=== PATIENT | female | born 2000 | race Caucasian/White ===

== ENCOUNTER 2020-11-26 14:42 | Emergency (ER) | payer BC ==
[~2020-11-26] VITALS: Ht 167 cm; Wt 77.0 kg
--- NOTE | 2020-11-26 15:20 | ED EENT ---
History of Present Illness General Chief Complaint: Oral/Throat Problems Stated Complaint: SORE THROAT, DEHYDRATION Nursing Triage Note: PT CO OF SORETHROAT STATES SENT FROM CLINIC, STATES STARTED YESTERDAY, HAS BODY ACHES AND FEVER. PT HAS HAD COVID ON OCT 05 Source: patient Exam Limitations: no limitations History of Present Illness Date Seen by Provider: Nov 26, 2020 Time Seen by Provider: 15:18 Initial Comments To ER with reports of sore throat. States she was sent out here from [facility]. Sore throat started yesterday. Fevers. Body aches. She had Covid on October 05. Timing/Duration: yesterday Severity: moderate Location: throat Prearrival Treatment: no prearrival treatment Associated Symptoms: sore throat Allergies and Home Medications Allergies Coded Allergies: No Known Drug Allergies (Unverified , 11/26/20) Home Medications Cefuroxime Axetil 500 Mg Tablet, 500 MG PO BID Prescribed by: ERICA PARSONS on 11/26/20 1624 Patient Home Medication List Home Medication List Reviewed: Yes Review of Systems Review of Systems Constitutional: see HPI, chills, fever Eyes: No Symptoms Reported Ears: No Symptoms Reported Nose: no symptoms reported Mouth: no symptoms reported Throat: see HPI, pain Respiratory: no symptoms reported Cardiovascular: no symptoms reported Musculoskeletal: no symptoms reported Past Gmrlvjm-[id number]-Mmjnpl Hx Patient Social History Recent Infectious Disease Expo: No Past Medical History : No Physical Exam Vital Signs Vital Signs - First Documented 11/26/20 14:54 Temp 39.0 Pulse 133 Resp 20 B/P (MAP) 120/77 (91) Pulse Ox 97 Height, Weight, BMI Height: '" Weight: lbs. oz. kg; 27.00 BMI Method: General Appearance: WD/WN, no apparent distress Eyes: bilateral eye normal inspection, bilateral eye PERRL, bilateral eye EOMI Ears: bilateral ear auricle normal, bilateral ear canal normal, bilateral ear TM normal Mouth/Throat: tonsillar exudate, tonsillar swelling, other (There is no uvular deviation or unilateral asymmetric tonsillar enlargement to suggest peritonsillar abscess.) Neck: lymphadenopathy (R), lymphadenopathy (L), other (There is anterior cervical chain adenopathy bilaterally. There is no obvious swelling of the neck or face) Cardiovascular: no murmur, tachycardia Respiratory: no respiratory distress, no accessory muscle use Gastrointestinal: normal bowel sounds, soft Neurologic/Psychiatric: alert, normal mood/affect, oriented x 3 Skin: normal color, warm/dry Progress/Results/Core Measures Results/Orders Lab Results Laboratory Tests Test 11/26/20 15:05 11/26/20 15:26 Range/Units White Blood Count 14.2 H 4.3-11.0 10^3/uL Red Blood Count 4.37 3.80-5.11 10^6/uL Hemoglobin 12.1 11.5-16.0 g/dL Hematocrit 37 35-52 % Mean Corpuscular Volume 85 80-99 fL Mean Corpuscular Hemoglobin 28 25-34 pg Mean Corpuscular Hemoglobin Concent 33 32-36 g/dL Red Cell Distribution Width 13.6 10.0-14.5 % Platelet Count 235 130-400 10^3/uL Mean Platelet Volume 10.1 9.0-12.2 fL Immature Granulocyte % (Auto) 1 % Neutrophils (%) (Auto) 87 H 42-75 % Lymphocytes (%) (Auto) 8 L 12-44 % Monocytes (%) (Auto) 5 0-12 % Eosinophils (%) (Auto) 0 0-10 % Basophils (%) (Auto) 0 0-10 % Neutrophils # (Auto) 12.4 H 1.8-7.8 10^3/uL Lymphocytes # (Auto) 1.1 1.0-4.0 10^3/uL Monocytes # (Auto) 0.6 0.0-1.0 10^3/uL Eosinophils # (Auto) 0.0 0.0-0.3 10^3/uL Basophils # (Auto) 0.0 0.0-0.1 10^3/uL Immature Granulocyte # (Auto) 0.1 0.0-0.1 10^3/uL Neutrophils % (Manual) 75 % Lymphocytes % (Manual) 12 % Monocytes % (Manual) 5 % Eosinophils % (Manual) 0 % Basophils % (Manual) 0 % Band Neutrophils 6 % Reactive Lymphocytes 2 % Blood Morphology Comment NORMAL Sodium Level 134 L 135-145 MMOL/L Potassium Level 3.0 L 3.6-5.0 MMOL/L Chloride Level 104 98-107 MMOL/L Carbon Dioxide Level 20 L 21-32 MMOL/L Anion Gap 10 5-14 MMOL/L Blood Urea Nitrogen 10 7-18 MG/DL Creatinine 0.82 0.60-1.30 MG/DL Estimat Glomerular Filtration Rate > 60 BUN/Creatinine Ratio 12 Glucose Level 120 H 70-105 MG/DL Calcium Level 8.9 8.5-10.1 MG/DL Corrected Calcium 9.1 8.5-10.1 MG/DL Total Bilirubin 1.0 0.1-1.0 MG/DL Aspartate Amino Transf (AST/SGOT) 12 5-34 U/L Alanine Aminotransferase (ALT/SGPT) 8 0-55 U/L Alkaline Phosphatase 55 40-136 U/L Total Protein 7.4 6.4-8.2 GM/DL Albumin 3.8 3.2-4.5 GM/DL Monoscreen NEGATIVE NEGATIVE Group A Streptococcus Screen NEGATIVE NEGATIVE Urine Color YELLOW Urine Clarity SL CLOUDY Urine pH 6.0 5-9 Urine Specific [place] >=1.030 1.016-1.022 Urine Protein 1+ H NEGATIVE Urine Glucose (UA) NEGATIVE NEGATIVE Urine Ketones 1+ H NEGATIVE Urine Nitrite NEGATIVE NEGATIVE Urine Bilirubin NEGATIVE NEGATIVE Urine Urobilinogen 0.2 < = 1.0 MG/DL Urine Leukocyte Esterase NEGATIVE NEGATIVE Urine RBC (Auto) 3+ H NEGATIVE Urine RBC 0-2 /HPF Urine WBC 10-25 H /HPF Urine Squamous Epithelial Cells 2-5 /HPF Urine Crystals NONE /LPF Urine Bacteria MODERATE H /HPF Urine Casts NONE /LPF Urine Mucus LARGE H /LPF Urine Culture Indicated YES My Orders Orders - ERICA PARSONS APRN Cbc With Automated Diff (11/26/20 15:16) Comprehensive Metabolic Panel (11/26/20 15:16) Ua Culture If Indicated (11/26/20 15:16) Ed Iv/Invasive Line Start (11/26/20 15:16) Rapid Strep A Screen (11/26/20 15:16) Monotest (11/26/20 15:16) Dexamethasone Injection (Decadron Inje (11/26/20 15:30) Ceftriaxone For Iv Use (Rocephin For I (11/26/20 15:30) Ibuprofen Tablet (Motrin Tablet) (11/26/20 15:30) Ns Iv 1000 Ml (Sodium Chloride 0.9%) (11/26/20 15:30) Urine Culture (11/26/20 15:26) Manual Differential (11/26/20 15:05) Medications Given in ED Current Medications Medications Dose Ordered Sig/Loreta Route Start Time Stop Time Status Last Admin Dose Admin Ceftriaxone Sodium 1000 mg/ Sterile Water 10 ml @ 200 mls/hr ONCE ONCE IV 11/26/20 15:30 11/26/20 15:32 DC 11/26/20 15:35 200 MLS/HR Dexamethasone Sodium Phosphate 10 mg ONCE ONCE IV 11/26/20 15:30 11/26/20 15:31 DC 11/26/20 15:34 10 MG Ibuprofen 800 mg ONCE ONCE PO 11/26/20 15:30 11/26/20 15:31 DC 11/26/20 15:35 800 MG Vital Signs/I&O 11/26/20 14:54 Temp 39.0 Pulse 133 Resp 20 B/P (MAP) 120/77 (91) Pulse Ox 97 Blood Pressure Mean: 91 Departure Impression Primary Impression: Pharyngitis Additional Impression: Urinary tract infection Disposition: HOME, SELF-CARE Condition: Stable Departure-Patient Inst. Decision time for Depature: 16:10 Referrals: NO,LOCAL PHYSICIAN (PCP/Family) Primary Care Physician Patient Instructions: Sore Throat in Adults Add. Discharge Instructions: 1. Antibiotics as directed. Tylenol and ibuprofen for pain control. Follow-up with student health later this week. Look for Cepacol sore throat lozenges at [facility] or [facility] which contain benzocaine, a topical numbing agent which will help with the discomfort. All discharge instructions reviewed with patient and/or family. Voiced understanding. Scripts Cefuroxime Axetil (Cefuroxime) 500 Mg Tablet 500 MG PO BID, #14 TAB Prov: ERICA PARSONS APRN 11/26/20 Work/School Note: Work Release Form Date Seen in the Emergency Department: Nov 26, 2020 Return to Work: Nov 28, 2020 ERICA PARSONS APRN Nov 26, 2020 15:19
[2020-11-26] MEDS ORDERED: NS IV 1000 ML 1,000 ML IV SCH (15:30)
[2020-11-26] MEDS ORDERED: cefTRIAXone FOR IV USE 1,000 MG in WATER (STERILE) FOR INJECTION 10 ML IV ONE (15:30)
[2020-11-26] MEDS ORDERED: IBUPROFEN 800 MG (MOTRIN) TAB PO ONE (15:30)
[2020-11-26 15:32] LABS: BILIRUBIN,URINE NEGATIVE (NEGATIVE); CLARITY,URINE SL CLOUDY; COLOR,URINE YELLOW; GLUCOSE, URINE (UA) NEGATIVE (NEGATIVE); KETONES,URINE 1+ (NEGATIVE); LEUKOCYTE ESTERASE ,URINE NEGATIVE (NEGATIVE); NITRITE,URINE NEGATIVE (NEGATIVE); PROTEIN,URINE 1+ (NEGATIVE)
[2020-11-26 15:46] LABS: BACTERIA,URINE MODERATE /HPF; RBC,URINE 0-2 /HPF
[2020-11-26 15:54] LABS: ALBUMIN 3.8 GM/DL (3.2-4.5); CHLORIDE 104 MMOL/L (98-107); SODIUM 134 MMOL/L (135-145)
[2020-11-26 15:55] LABS: CALCIUM 8.9 MG/DL (8.5-10.1)
[2020-11-26 15:56] LABS: GLUCOSE 120 MG/DL (70-105); TOTAL PROTEIN 7.4 GM/DL (6.4-8.2)
[2020-11-26 15:57] LABS: CARBON DIOXIDE 20 MMOL/L (21-32)
[2020-11-26 16:00] LABS: ALKALINE PHOSPHATASE 55 U/L (40-136); CREATININE SERUM 0.82 MG/DL (0.60-1.30); GFR ESTIMATED > 60
[2020-11-26 16:01] LABS: BUN/CREATININE RATIO 12
[2020-11-26 16:03] LABS: ALANINE AMINOTRANSFERASE 8 U/L (0-55)
[2020-11-26 16:06] LABS: BASOPHILS % (AUTO) 0 % (0-10); EOSINOPHILS % (AUTO) 0 % (0-10); HEMATOCRIT 37 % (35-52); HEMOGLOBIN 12.1 g/dL (11.5-16.0); LYMPHOCYTES # (AUTO) 1.1 10^3/uL (1.0-4.0); LYMPHOCYTES % (AUTO) 8 % (12-44); MEAN CORPUSCULAR HEMOGLOBIN 28 pg (25-34); MEAN CORPUSCULAR HGB CONC 33 g/dL (32-36); MEAN CORPUSCULAR VOLUME 85 fL (80-99); MEAN PLATELET VOLUME 10.1 fL (9.0-12.2); MONOCYTES # (AUTO) 0.6 10^3/uL (0.0-1.0); MONOCYTES % (AUTO) 5 % (0-12); NEUTROPHILS # (AUTO) 12.4 10^3/uL (1.8-7.8); NEUTROPHILS % (AUTO) 87 % (42-75); PLATELET COUNT 235 10^3/uL (130-400); WHITE BLOOD COUNT 14.2 10^3/uL (4.3-11.0)
[2020-11-26 16:22] LABS: BAND NEUTROPHILS 6 %; BASOPHILS % (MANUAL) 0 %; EOSINOPHILS % (MANUAL) 0 %; LYMPHOCYTES % (MANUAL) 12 %; MONOCYTES % (MANUAL) 5 %; NEUTROPHILS % (MANUAL) 75 %; RBC MORPH NORMAL; REACTIVE LYMPHOCYTES 2 %
[2020-11-26] MEDS ORDERED: CEFU500T63 PO (16:24)
[2020-11-26 17:03] VITALS: BP 110/72
== END 2020-11-26 17:07 | disposition home or self-care (01) ==
LOC: ER 14:46
DX: J02.9 Acute pharyngitis, unspecified (principal); N39.0 Urinary tract infection, site not specified
CPT/HCPCS: 36415; 80053; 81000; 85007; 85027; 86308; 87088; 87430